=== PATIENT | male | born 1960 | race Caucasian/White ===

== ENCOUNTER 2018-02-08 10:42 | Emergency (ER) | payer MEDICAID ==
[~2018-02-08] VITALS: Ht 182.9 cm; Wt 87.7 kg
[~2018-02-08 10:42] MED LIST: CLON0.3T PO; HYDR-4069 PO; LABE100T5 PO; LORA0.5T PO; MELA3TAB PO
[2018-02-08] MEDS ORDERED: PENI500T2 PO (11:50)
[2018-02-08] MEDS ORDERED: HYDROcodone/acetaminophen 10/325mg tab PO ONE (12:00)
[2018-02-08] MEDS ORDERED: ACET-3068 PO (12:10)
[2018-02-08 12:16] VITALS: BP 187/67
== END 2018-02-08 12:19 | disposition home or self-care (01) ==
LOC: ER 10:43
DX: K04.7 Periapical abscess without sinus (principal); I12.9 Hypertensive chronic kidney disease with stage 1 through stage 4 chronic kidney disease, or unspecified chronic kidney disease; N18.9 Chronic kidney disease, unspecified; F17.200 Nicotine dependence, unspecified, uncomplicated; F15.90 Other stimulant use, unspecified, uncomplicated; K02.9 Dental caries, unspecified; Z86.73 Personal history of transient ischemic attack (TIA), and cerebral infarction without residual deficits; Z91.011 Allergy to milk products; Z79.2 Long term (current) use of antibiotics; Z79.899 Other long term (current) drug therapy
CPT/HCPCS: 99283

== ENCOUNTER 2021-03-04 09:59 | Outpatient (CLI) | payer MEDICAID ==
[~2021-03-04 09:59] MED LIST changes: -MELA3TAB PO; +MELA3TAB39 PO
== END 2021-03-04 23:59 | disposition home or self-care (01) ==
LOC: RAD 09:59
DX: R40.4 Transient alteration of awareness (principal)
CPT/HCPCS: 95816